=== PATIENT | male | born 2000 | race American Indian/Alaskan Native ===

== ENCOUNTER 2018-01-28 15:16 | Emergency (ER) | payer SELFPAY ==
--- NOTE | 2018-01-28 15:53 | EDM.PDOC ---
ED HPI GENERAL MEDICAL PROBLEM - General Chief Complaint: Flank Pain Stated Complaint: BACK PAIN [id number] Time Seen by Provider: 01/28/18 15:40 Source of Information: Reports: Patient, RN, RN Notes Reviewed History Limitations: Reports: No Limitations - History of Present Illness INITIAL COMMENTS - FREE TEXT/NARRATIVE: Pt presents to the ER with c/o left flank pain that began today. He states it feels as if he has fallen on his back and gotten the wind knocked out of him, although he denies any trauma or injury to the area. Pt denies fever, chills, chest pain, SOB, N/V/D, problems with urination or bowel movements. Onset: Today Left Flank Pain Score (Numeric/FACES): 4 - Related Data Allergies Allergy/AdvReac Type Severity Reaction Status Date / Time No Known Allergies Allergy Verified 01/28/18 15:24 Home Meds: Home Meds . [No Known Home Meds] 01/28/18 [History] ED ROS GENERAL - Review of Systems Review Of Systems: ROS reveals no pertinent complaints other than HPI. ED EXAM,LOWER BACK PAIN/INJURY - Physical Exam Exam: See Below Exam Limited By: No Limitations General Appearance: Alert, WD/WN, No Apparent Distress Eye Exam: Bilateral Eye: EOMI, Normal Inspection Ears: Normal External Exam, Hearing Grossly Normal Nose: Normal Inspection Throat/Mouth: Normal Inspection, Normal Voice, No Airway Compromise Head: Atraumatic, Normocephalic Neck: Normal Inspection Respiratory/Chest: No Respiratory Distress, Lungs Clear, Normal Breath Sounds, No Accessory Muscle Use, Chest Non-Tender Cardiovascular: Normal Peripheral Pulses, Regular Rate, Rhythm, No Edema, No Gallop, No JVD, No Murmur, No Rub GI/Abdominal: Normal Bowel Sounds, Soft, Non-Tender, No Organomegaly, No Distention, No Abnormal Bruit, No Mass (Male) Exam: Deferred Rectal (Males) Exam: Deferred Back Exam: Normal Inspection, Full Range of Motion. No: CVA Tenderness (L), CVA Tenderness (R), Decreased Range of Motion Extremities: Normal Inspection, Normal Range of Motion, Non-Tender, No Pedal Edema, Normal Capillary Refill Neurological: Alert, Normal Mood/Affect, Normal Dorsiflexion, CN II-XII Intact, Normal Plantar Flexion, Normal Gait, Normal Reflexes, No Motor/Sensory Deficits , Oriented x 3 Psychiatric: Normal Affect, Normal Mood Skin Exam: Warm, Dry, Intact, Normal Color, No Rash Lymphatic: No Adenopathy Course - Vital Signs Last Recorded V/S: Last Vital Signs Temp 97.8 F 01/28/18 15:24 Pulse 104 H 01/28/18 15:24 Resp 16 01/28/18 15:24 BP 142/104 H 01/28/18 15:24 Pulse Ox 100 01/28/18 15:24 - Orders/Labs/Meds Orders: Active Orders 24 hr Category Date Time Status DRUG SCREEN URINE BIORAD [URCHEM] Stat Lab 01/28/18 15:24 Ordered UA W/MICROSCOPIC [URIN] Stat Lab 01/28/18 15:24 Ordered Labs: Laboratory Tests 01/28/18 01/28/18 Range/Units 15:24 15:24 Urine Color Yellow (YELLOW) Urine Appearance Clear (CLEAR) Urine pH 6.0 (5.0-9.0) Ur Specific [place] 1.020 (1.005-1.030) Urine Protein Negative (NEGATIVE) Urine Glucose (UA) Negative (NEGATIVE) Urine Ketones Negative (NEGATIVE) Urine Occult Blood Trace-intact H (NEGATIVE) Urine Nitrite Negative (NEGATIVE) Urine Bilirubin Negative (NEGATIVE) Urine Urobilinogen 0.2 (0.2-1.0) mg/dL Ur Leukocyte Esterase Trace H (NEGATIVE) Urine RBC 0-5 /HPF Urine WBC 0-5 (0-5/HPF) /HPF Ur Epithelial Cells Few /HPF Urine Bacteria Few (0-FEW/HPF) /HPF Urine Opiates Screen Negative (NEGATIVE) Ur Oxycodone Screen Negative (NEGATIVE) Urine Methadone Screen Negative (NEGATIVE) Ur Barbiturates Screen Negative (NEGATIVE) U Tricyclic Antidepress Negative (NEGATIVE) Ur Phencyclidine Scrn Negative (NEGATIVE) Ur Amphetamine Screen Negative (NEGATIVE) U Methamphetamines Scrn Negative (NEGATIVE) Urine MDMA Screen Negative (NEGATIVE) U Benzodiazepines Scrn Negative (NEGATIVE) Urine Cocaine Screen Negative (NEGATIVE) U Marijuana (THC) Screen Positive H (NEGATIVE) Departure - Departure Time of Disposition: 16:01 Disposition: Home, Self-Care 01 Condition: Fair Clinical Impression: Left flank pain - Discharge Information Instructions: Flank Pain, Qven-ns-Nhsw Forms: ED Department Discharge Additional Instructions: May use Tylenol and/or ibuprofen as directed for pain Follow up with your primary care facility next week Drink plenty of water. - My Orders Last 24 Hours: My Active Orders 01/28/18 15:24 DRUG SCREEN URINE BIORAD [URCHEM] Stat UA W/MICROSCOPIC [URIN] Stat - Assessment/Plan Last 24 Hours: My Active Orders 01/28/18 15:24 DRUG SCREEN URINE BIORAD [URCHEM] Stat UA W/MICROSCOPIC [URIN] Stat
== END 2018-01-28 16:08 | disposition home or self-care (01) ==
LOC: DL.ED 15:16
DX: R10.9 Unspecified abdominal pain (principal)
CPT/HCPCS: 80305; 81001; 99283; 99284

== ENCOUNTER 2019-05-24 18:19 | Emergency (ER) | payer SELFPAY | END 2019-05-24 20:22 | disposition left against medical advice (07) | LOC: DL.ED 18:19 | DX: Z53.21 Procedure and treatment not carried out due to patient leaving prior to being seen by health care provider (principal) ==

== ENCOUNTER 2021-10-03 21:58 | Emergency (ER) | payer SELFPAY ==
[2021-10-03 23:45] LABS: AMPHETAMINES,URINE NEGATIVE (NEGATIVE); BARBITURATES,URINE NEGATIVE (NEGATIVE); BENZODIAZEPINE,URINE NEGATIVE (NEGATIVE); MDMA (ECSTASY), URINE NEGATIVE (NEGATIVE); METHADONE,URINE NEGATIVE (NEGATIVE); METHAMPHETAMINES,URINE NEGATIVE (NEGATIVE); OPIATES,URINE NEGATIVE (NEGATIVE); OXYCODONE,URINE NEGATIVE (NEGATIVE); PHENCYCLIDINE,URINE NEGATIVE (NEGATIVE); TCA,URINE NEGATIVE (NEGATIVE)
[2021-10-03 23:56] LABS: ANION GAP 14.3 mEq/L (7-13); CHLORIDE,CL 104 mmol/L (98-107); SODIUM,NA 141 mmol/L (136-145)
== END 2021-10-03 23:45 | disposition left against medical advice (07) ==
LOC: DL.ED 21:58
DX: Z53.21 Procedure and treatment not carried out due to patient leaving prior to being seen by health care provider (principal)
CPT/HCPCS: 36415; 80053; 80305-QW; 80307; 81001; 85025; U0002

== ENCOUNTER 2022-01-29 21:30 | Emergency (ER) | payer OTHER, MEDICAID ==
[2022-01-29] MEDS ORDERED: Iopamidol 612 MG/ML 100 ML Bottle IVPUSH ONE (21:39)
[2022-01-29 21:47] LABS: ANION GAP 13.3 mEq/L (7-13); CHLORIDE,CL 105 mmol/L (98-107); SODIUM,NA 141 mmol/L (136-145)
[2022-01-29] MEDS ORDERED: Ondansetron 4 MG/2 ML SDV IVPUSH ONE ×2 (22:11→22:38)
[2022-01-29] MEDS ORDERED: Ondansetron 4 MG/2 ML SDV ONE (22:12)
[2022-01-29] MEDS ORDERED: fentaNYL 100 MCG/2 ML SDV ONE ×2 (22:55→23:19)
[2022-01-29] MEDS ORDERED: Midazolam 1 MG/ML 2 ML SDV ONE (22:55)
[2022-01-29] MEDS ORDERED: Midazolam 1 MG/ML 2 ML SDV IV ONE (23:07)
[2022-01-29] MEDS ORDERED: fentaNYL 100 MCG/2 ML SDV IV ONE (23:08)
[2022-01-29] MEDS ORDERED: fentaNYL 250 MCG/5 ML SDV ONE (23:10)
[2022-01-29] MEDS ORDERED: levETIRAcetam in NaCl (iso-os) 400 ML ONE (23:14)
[2022-01-29] MEDS ORDERED: fentaNYL 100 MCG/2 ML SDV IVPUSH ONE (23:19)
[2022-01-29] MEDS ORDERED: Midazolam 1 MG/ML 2 ML SDV IVPUSH ONE (23:19)
[2022-01-29] MEDS ORDERED: levETIRAcetam in NaCl (iso-os) 2,000 MG in Premix Bag 1 BAG IV ONE ×2 (23:20)
[2022-01-29] MEDS ORDERED: ceFAZolin 1 GM Vial IV ONE (23:25)
[2022-01-29] MEDS ORDERED: ceFAZolin 1 GM Vial ONE (23:31)
== END 2022-01-30 00:05 ==
LOC: DL.ED 21:30
DX: S06.5X0A Traumatic subdural hemorrhage without loss of consciousness, initial encounter (principal); V86.99XA Unspecified occupant of other special all-terrain or other off-road motor vehicle injured in nontraffic accident, initial encounter; Y92.410 Unspecified street and highway as the place of occurrence of the external cause
CPT/HCPCS: 31500; 36415; 70450; 71045; 71260; 72125; 74177; 80053; 80307; 85025; 96374; 99285; 99285-25; J0690; J1953; J2250; J2405; J3010; Q9967